=== PATIENT | female | born 1950 | race Caucasian/White ===

== ENCOUNTER 2018-09-27 15:00 | Outpatient (CLI) | payer MEDICARE, OTHER ==
--- NOTE | 2018-09-27 17:24 | BD ---
DEXA BONE DENSITY STUDY: HISTORY: A 68-year-old female with asymptomatic menopausal stay. LUMBAR SPINE BMD (g/cm2) T-SCORE L1 0.916 -0.7 L2 0.996 -0.3 L3 0.957 -1.2 L4 0.846 -2.0 TOTAL 0.921 -1.1 Evidence for osteopenia with increased risk for fracture. Bone mineral density has decreased 0.3% fr om the 07/25/2016 study. LEFT FEMUR BMD (g/cm2) T-SCORE FEMORAL NECK 0.685 -1.5 TOTAL 0.851 -0.7 Evidence for osteopenia with increased risk for fracture. Bone mineral density has decreased 1.7% fr om the 07/25/2016 study. IMPRESSION: The FRAX score for a major osteoporotic fracture is 9.6% and for a hip fracture is 1.1% POS: ROSENDO
== END 2018-09-27 15:01 | disposition home or self-care (01) ==
LOC: BICMAMMO 15:00
PROVIDERS: ATTEND Family Medicine
DX: Z78.0 Asymptomatic menopausal state (principal); M85.89 Other specified disorders of bone density and structure, multiple sites
CPT/HCPCS: 77080

== ENCOUNTER 2019-01-09 10:15 | Outpatient (CLI) | payer MEDICARE ==
--- NOTE | 2019-01-09 11:52 | MRI ---
LUMBAR SPINE MRI WITHOUT IV CONTRAST: Date: 01/09/19 HISTORY: Right-sided lumbar radiculopathy. TECHNIQUE: Multiplanar, multisequence MRI examination of lumbar spine is performed. FINDINGS: Conus medullaris region is unremarkable. There are generalized disc desiccation changes, and ligament and facet hypertrophic changes. T12-L1 and L1-L2 discs demonstrate no significant canal, lateral recess, or foraminal stenosis. At L2-L3, there is a small left posterolateral annular fissure without associated stenosis. At L3-L4, there is mild disc bulging with small annular fissure with slight thinning of the lateral r ecesses, without significant foraminal stenosis. At L4-L5, there is an approximately 0.6 cm Grade I anterolisthesis with severe central canal and late ral recess stenosis, worse on the right side, as well as severe right-sided foraminal stenosis, with mild left foraminal stenosis, and some broad based protrusion changes. At L5-S1, there is mild disc bulging with a small central protrusion, with borderline canal and later al recess stenosis and mild bilateral foraminal stenosis. IMPRESSION: Generalized disc desiccation changes and ligament and facet hypertrophic changes with some multilevel variable severity canal, lateral recess, and foraminal stenosis, most marked at L4-L5, with associat ed Grade I anterolisthesis. POS: OFF
== END 2019-01-09 10:16 | disposition home or self-care (01) ==
LOC: BICMRI 10:15
PROVIDERS: ATTEND Family Medicine
DX: M51.16 Intervertebral disc disorders with radiculopathy, lumbar region (principal); M48.061 Spinal stenosis, lumbar region without neurogenic claudication; M43.16 Spondylolisthesis, lumbar region
CPT/HCPCS: 72148

== ENCOUNTER 2019-04-02 14:30 | Outpatient (CLI) | payer MEDICARE ==
--- NOTE | 2019-04-02 16:21 | RAD ---
THREE VIEWS LUMBAR SPINE INCLUDING FLEXION AND EXTENSION VIEWS: 04/02/19 COMPARISON: 01/14/19. HISTORY: Spondylolisthesis, lumbar region. FINDINGS: The vertebral body heights are within normal limits. Again noted is narrowing of the L4-5 and L5-S1 i ntervertebral disc spaces. Grade I anterolisthesis of L4 on L5 is again seen without abnormal transla tional motion seen between the flexion and extension views. No additional level of subluxation is see n. Osteophytes are seen anteriorly in the lower lumbar spine. Facet degenerative changes are also aga in seen in the lower lumbar spine. There has been no interval change compared to the prior exam. IMPRESSION: Stable anterolisthesis of L4 on L5 with degenerative changes seen in the lower lumbar spine. POS: Karoline
== END 2019-04-02 14:31 | disposition home or self-care (01) ==
LOC: RAD 14:30
PROVIDERS: ATTEND Nurse Practitioner Family
DX: M43.16 Spondylolisthesis, lumbar region (principal); M47.816 Spondylosis without myelopathy or radiculopathy, lumbar region
CPT/HCPCS: 72100

== ENCOUNTER 2022-06-29 09:58 | Outpatient (CLI) | payer MEDICARE | END 2022-06-29 09:59 | disposition home or self-care (01) | LOC: BICCT 09:58 | PROVIDERS: ATTEND Specialist | DX: E21.5 Disorder of parathyroid gland, unspecified (principal); E04.2 Nontoxic multinodular goiter | CPT/HCPCS: 70492; 82565 ==